=== PATIENT | female | born 1940 | race Caucasian/White ===

== ENCOUNTER → 2016-11-09 | Outpatient (CLI) | payer OTHER, MEDICARE | LOC: BHFA 11:00 | PROVIDERS: ATTEND Internal Medicine Cardiovascular Disease | DX: I48.91 Unspecified atrial fibrillation (principal) ==

== ENCOUNTER → 2016-11-29 | Outpatient (CLI) | payer OTHER, MEDICARE | LOC: BHFA 14:00 | PROVIDERS: ATTEND Internal Medicine Cardiovascular Disease | DX: R94.39 Abnormal result of other cardiovascular function study (principal); I35.1 Nonrheumatic aortic (valve) insufficiency; I48.91 Unspecified atrial fibrillation | CPT/HCPCS: 78452; 93017; A9500 ==

== ENCOUNTER 2017-01-22 12:16 | Emergency (ER) | payer OTHER, MEDICARE ==
[2017-01-22 12:56] VITALS: BP 154/84; PULSE 64; RESP 18; TEMP 97.5; O2SAT 97
--- NOTE | 2017-01-22 13:24 | EDPHY ---
HPI/HX/ROS/PE/MDM Narrative: CHIEF COMPLAINT: Leg pain. HISTORY OF PRESENT ILLNESS: The patient is a 76-year-old female anticoagulated on Coumadin for atrial fibrillation who presents with left lower leg pain. She reports that the pain began a week ago when she hit her leg on the shower and has been worsening since then. She has associated swelling and some reddness over the lower leg. The pain does not radiate. She denies history of blood clot. No fever, chills, chest pain, shortness of breath, palpitations, vomiting , diarrhea, urinary complaints, headache, lightheadedness. REVIEW OF SYSTEMS: Aside from elements discussed in the HPI, a comprehensive 10-point review of systems was reviewed and is negative. PAST MEDICAL HISTORY: Atrial fibrillation, hypertension, hyperlipidemia. SOCIAL HISTORY: Non smoker. VITAL SIGNS: Reviewed by me Alert, oriented, no distress. Lungs CTA, heart regular rate. EXTREMITIES: Range of motion is normal throughout. Left leg: erythema over distal tib/fib, not circumferential, moderate warmth. Mild swelling present up to knee. Negative Koch's. Calf soft and nontender. NEURO: Alert and oriented, grossly nonfocal. SKIN: Warm and dry, no rash. Portions of this note were transcribed by a medical record assistant. I personally performed a history, physical exam, medical decision making, and confirmed accuracy of information the transcribed note. ED Course: I discussed with the patient the possibility of blood clot vs cellulitis. I suspect cellulitis is likely; she will have an ultrasound to rule out DVT. 1515: Negative ultrasound results conveyed to me by Dr. Mcelroy, radiology. She will be discharged on Keflex with the diagnosis of cellulitis. I discussed this with her and answered all of her questions. She understands to follow up closely with her primary care provider this week. Study: Ultrasound of the: Left leg. Indication: Results: Negative. The study was read by the radiologist, Dr. Mcelroy. I viewed the images myself on the PACS system. MDM: Diff dx considered included cellulitis, venous stasis, dvt, superficial thrombophlebitis, chf, lymphedema. General Time Seen by Provider: 01/22/17 13:15 Initial Vital Signs: Initial Vital Signs Temperature (C) 36.4 C 01/22/17 12:53 Heart Rate 64 01/22/17 12:53 Respiratory Rate 18 01/22/17 12:53 Blood Pressure 154/84 H 01/22/17 12:53 O2 Sat (%) 97 01/22/17 12:53 O2 Delivery Mode Room Air Allergies/Adverse Reactions: No Known Allergies Allergy (Verified 01/22/17 12:52) Home Medications: Medication Instructions Recorded Alendronate Sodium 70 mg PO 02/16/14 Aspirin 02/16/14 Richar-Mag Tablet Chewable 02/16/14 Cardura 02/16/14 Hctz/Spironolactone Oral Susp 02/16/14 Multi-Vitamin Daily 1 tab PO DAILY 02/16/14 Prilosec 20 mg PO DAILY 02/16/14 Propranolol Sr 60 mg PO BID 02/16/14 Simvastatin 40 mg PO HS 02/16/14 Cephalexin [Keflex (RX)] 500 mg PO QID 7 Days 01/22/17 Coumadin 01/22/17 Lasix 01/22/17 Departure - Departure Disposition: Home, Routine, Self-Care Clinical Impression: Cellulitis Condition: Good Instructions: Cellulitis (ED) Additional Instructions: Take Keflex as prescribed. Follow up with your primary care provider this week for reevaluation. Return to the emergency department if you experience any serious worsening of condition. Referrals: Lupe Yung MD [Primary Care Provider] - As per Instructions Prescriptions: Cephalexin [Keflex (RX)] 500 mg PO QID 7 Days Report Scribed for: Mayra Ji Report Scribed by: Rogelio Pope Date of Report: 01/22/17 Time of Report: 13:16
== END 2017-01-22 15:37 | disposition home or self-care (01) ==
DX: L03.116 Cellulitis of left lower limb (principal); I10 Essential (primary) hypertension; Z79.82 Long term (current) use of aspirin; Z79.01 Long term (current) use of anticoagulants

== ENCOUNTER 2017-05-17 11:45 | Emergency (ER) | payer OTHER, MEDICARE ==
--- NOTE | 2017-05-17 12:03 | CPEKG ---
Heart Rate: 64 RR Interval: 938 P-R Interval: 164 QRSD Interval: 84 QT Interval: 448 QTC Interval: 463 P [place]: -5 QRS [place]: 15 T Wave [place]: 113 EKG Severity - ABNORMAL ECG - EKG Impression: SINUS RHYTHM EKG Impression: NONSPECIFIC T ABNORMALITIES, LATERAL LEADS Electronically Signed By: Diony Mae 17-May-2017 12:10:13
--- NOTE | 2017-05-17 12:22 | EDPHY ---
H & P Time Seen by Provider: 05/17/17 12:09 HPI/ROS: CHIEF COMPLAINT: Dizziness HISTORY OF PRESENT ILLNESS: Patient is a history of atrial fibrillation which happens usually every 2 months. She has been noticing increasing frequency of her symptoms but when she takes a usual dose of her propranolol symptoms tend to resolve. She woke up this morning at 4:00 a.m. and was awake until 630 and felt okay. 7:15 a.m. she awoke and felt a little bit dizzy. Just over an hour later she was talking to a friend on the phone and felt a "wave of heat" in dizziness and felt like she had to hold on to something. It sounds more like she had presyncope and not really vertigo. She was not staggering, was not off balance, did not actually faint or pass out. She did not have any weakness or numbness in extremities. REVIEW OF SYSTEMS: Eye: no change in vision ENT: no sore throat Cardiac: No chest pain Pulmonary: no cough or SOB Abdomen: no vomiting, diarrhea, abdominal pain. She did not eat very much yesterday and did not have breakfast although she normally does. Musculoskeletal: no back pain or neck pain Skin: no rash Neuro: no headache Constitutional: no fever : no urinary symptoms A comprehensive 10 point review of systems is otherwise negative aside from elements mentioned in the history of present illness. PAST MEDICAL HISTORY: Includes atrial fibrillation, hypertension, . Social history: Here with her . Increased stress yesterday. General Appearance: Alert and conversant, cooperative. Eyes: No scleral icterus. Extraocular motion intact. ENT, Mouth: Normal mucous membranes. Respiratory: Normal respiratory effort, breath sounds equal, lungs are clear to auscultation. Cardiovascular: Regular rate and rhythm. Gastrointestinal: Abdomen is soft and non tender. Neurological: Alert and oriented x3. Normally conversant. Face symmetric, normal movement and sensation in all extremities. Romberg negative, no pronator drift, normal [id number] bilaterally, normal [id number]. Skin: Warm and dry, no rashes. Musculoskeletal: No peripheral edema and no joint swelling. Psychiatric: Not agitated. Emergency Department course/MDM: EKG performed at 11:24 a.m. personally reviewed shows sinus rhythm with probably a short run of atrial fibrillation. I think it is unlikely the patient is having a stroke. I think malignant dysrhythmia is unlikely. Think the most likely symptom explanation is still intermittent atrial fibrillation. 1340: Results discussed, patient asymptomatic in the emergency department. Discussed with the patient that although I do not have a definitive diagnosis I think that an emergent medical condition is unlikely the cause of her symptoms. She has an appointment with her guest experience representative tomorrow. Smoking Status: Never smoked Constitutional: Initial Vital Signs Temperature (C) 36.4 C 05/17/17 11:50 Heart Rate 62 05/17/17 11:50 Respiratory Rate 18 05/17/17 11:50 Blood Pressure 130/76 H 05/17/17 11:50 O2 Sat (%) 97 05/17/17 11:50 O2 Delivery Mode Room Air Allergies/Adverse Reactions: No Known Allergies Allergy (Verified 01/22/17 12:52) Home Medications: Medication Instructions Recorded Alendronate Sodium 70 mg PO 02/16/14 Aspirin 02/16/14 Richar-Mag Tablet Chewable 02/16/14 Hctz/Spironolactone Oral Susp 02/16/14 Multi-Vitamin Daily 1 tab PO DAILY 02/16/14 Prilosec 20 mg PO DAILY 02/16/14 Propranolol Sr 60 mg PO BID 02/16/14 Simvastatin 40 mg PO HS 02/16/14 Coumadin 01/22/17 Lasix 01/22/17 Medical Decision Making - Diagnostics EKG Interpretation: 12-lead EKG interpreted by me; official reading is in trace master. My interpretation is sinus rhythm rate 64 with nonspecific lateral T abnormalities. Differential Diagnosis: Differential diagnosis considered for dizziness including but not limited to peripheral and central causes of vertigo, malignant dysrhythmia, ischemic stroke or hemorrhagic intracranial bleed, orthostatic causes including dehydration, and blood loss. Consult/Admit Bed Type: [facility] at 1348 - Data Points Laboratory Results: Laboratory Results 05/17/17 12:08 05/17/17 12:08 05/17/17 05/17/17 05/17/17 12:08 12:08 12:08 WBC 6.19 10^3/uL 10^3/uL (3.80-9.50) RBC 4.78 10^6/uL 10^6/uL (4.18-5.33) Hgb 14.8 g/dL g/dL (12.6-16.3) Hct 43.5 % % (38.0-47.0) MCV 91.0 fL fL (81.5-99.8) MCH 31.0 pg pg (27.9-34.1) MCHC 34.0 g/dL g/dL (32.4-36.7) RDW 12.5 % % (11.5-15.2) Plt Count 190 10^3/uL 10^3/uL (150-400) MPV 12.2 fL H fL (8.7-11.7) Neut % (Auto) 59.7 % % (39.3-74.2) Lymph % (Auto) 28.3 % % (15.0-45.0) [place] % (Auto) 7.3 % % (4.5-13.0) Eos % (Auto) 3.4 % % (0.6-7.6) Baso % (Auto) 0.8 % % (0.3-1.7) Nucleat RBC Rel Count 0.0 % % (0.0-0.2) Absolute Neuts (auto) 3.70 10^3/uL 10^3/uL (1.70-6.50) Absolute Lymphs (auto) 1.75 10^3/uL 10^3/uL (1.00-3.00) Absolute Monos (auto) 0.45 10^3/uL 10^3/uL (0.30-0.80) Absolute Eos (auto) 0.21 10^3/uL 10^3/uL (0.03-0.40) Absolute Basos (auto) 0.05 10^3/uL 10^3/uL (0.02-0.10) Absolute Nucleated RBC 0.00 10^3/uL 10^3/uL (0-0.01) Immature Gran % 0.5 % % (0.0-1.1) Immature Gran # 0.03 10^3/uL 10^3/uL (0.00-0.10) PT 25.4 SEC H SEC (12.0-15.0) INR 2.29 H (0.83-1.16) APTT 40.9 SEC H SEC (23.0-38.0) Sodium 144 mEq/L mEq/L (134-144) Potassium 3.9 mEq/L mEq/L (3.5-5.2) Chloride 106 mEq/L mEq/L (97-110) Carbon Dioxide 27 mEq/l mEq/l (22-31) Anion Gap 11 mEq/L mEq/L (8-16) BUN 17 mg/dL mg/dL (7-23) Creatinine 0.9 mg/dL mg/dL (0.6-1.0) Estimated GFR > 60 Glucose 114 mg/dL H mg/dL (70-100) Calcium 10.1 mg/dL mg/dL (8.5-10.4) Troponin I < 0.012 ng/mL ng/mL (0-0.034) Departure - Departure Disposition: Home, Routine, Self-Care Clinical Impression: Dizziness Condition: Good Instructions: Near Syncope (ED), Lightheadedness (ED) Referrals: Lupe Yung MD [Primary Care Provider] - As per Instructions Sabine Kennedy MD [Medical Doctor] - 1 day without fail (as scheduled )
[2017-05-17 12:55] LABS: % IMMATURE GRANULYOCYTES 0.5 % (0.0-1.1); ABSOLUTE IMMATURE GRANULOCYTES 0.03 10^3/uL (0.00-0.10); ADD DIFF? NO; ADD MORPH? NO; ADD SCAN? NO; ATYPICAL LYMPHOCYTE FLAG 0 (0-99); FRAGMENT RBC FLAG 0 (0-99); HEMATOCRIT 43.5 % (38.0-47.0); HEMOGLOBIN 14.8 g/dL (12.6-16.3); LEFT SHIFT FLG 0 (0-99); LIPEMIA HEMOLYSIS FLAG 90 (0-99); MEAN PLATELET VOLUME 12.2 fL (8.7-11.7); PLATELET CLUMPS FLAG 0 (0-99); PLATELET COUNT 190 10^3/uL (150-400); RED BLOOD CELL COUNT 4.78 10^6/uL (4.18-5.33); RED CELL DISTRIBUTION WIDTH 12.5 % (11.5-15.2)
[2017-05-17 12:58] LABS: ANION GAP 11 mEq/L (8-16); CALCIUM 10.1 mg/dL (8.5-10.4); CARBON DIOXIDE 27 mEq/l (22-31); CHLORIDE 106 mEq/L (97-110); CREATININE 0.9 mg/dL (0.6-1.0); GLOMERULAR FILTRATION RATE > 60; GLUCOSE 114 mg/dL (70-100); POTASSIUM 3.9 mEq/L (3.5-5.2); SODIUM 144 mEq/L (134-144)
[2017-05-17 13:02] LABS: INR 2.29 (0.83-1.16); PROTIME(PATIENT) 25.4 SEC (12.0-15.0)
[2017-05-17 13:03] LABS: APTT 40.9 SEC (23.0-38.0)
[2017-05-17 13:14] LABS: TROPONIN I < 0.012 ng/mL (0-0.034)
[2017-05-17 14:12] VITALS: BP 103/61; PULSE 65; RESP 16; TEMP 97.9; O2SAT 95
== END 2017-05-17 14:12 | disposition home or self-care (01) ==
DX: R42 Dizziness and giddiness (principal); I10 Essential (primary) hypertension; Z79.01 Long term (current) use of anticoagulants; Z79.82 Long term (current) use of aspirin

== ENCOUNTER → 2017-05-19 | Outpatient (CLI) | payer OTHER, MEDICARE | LOC: BHFA 10:45 | PROVIDERS: ATTEND Internal Medicine | DX: I48.91 Unspecified atrial fibrillation (principal); I35.2 Nonrheumatic aortic (valve) stenosis with insufficiency ==

== ENCOUNTER → 2017-05-23 | Outpatient (CLI) | payer OTHER, MEDICARE | LOC: BHFA 16:00 | PROVIDERS: ATTEND Internal Medicine Cardiovascular Disease | DX: I48.91 Unspecified atrial fibrillation (principal) ==

== ENCOUNTER → 2017-05-26 | Outpatient (CLI) | payer OTHER, MEDICARE | LOC: FIMAGING 15:41 | PROVIDERS: ATTEND Internal Medicine | DX: Z12.31 Encounter for screening mammogram for malignant neoplasm of breast (principal) | CPT/HCPCS: G0202 ==

== ENCOUNTER → 2017-12-11 | Outpatient (CLI) | payer OTHER, MEDICARE | LOC: FIMAGING 15:15 | PROVIDERS: ATTEND Emergency Medicine | DX: M79.662 Pain in left lower leg (principal); M79.89 Other specified soft tissue disorders ==

== ENCOUNTER → 2018-06-22 | Outpatient (CLI) | payer OTHER, MEDICARE | LOC: FIMAGING 12:38 | PROVIDERS: ATTEND Internal Medicine | DX: Z12.31 Encounter for screening mammogram for malignant neoplasm of breast (principal) ==

== ENCOUNTER 2018-07-18 00:36 | Emergency (ER) | payer OTHER, MEDICARE ==
[2018-07-18 00:56] LABS: PLATELET COUNT 209 10^3/uL (150-400)
[2018-07-18] MEDS ORDERED: NS 1,000 ML IV ONE (00:58)
[2018-07-18] MEDS ORDERED: PROPRANOLOL HCL 20 MG TAB PO ONE (01:03)
[2018-07-18 01:04] LABS: INR 1.84 (0.83-1.16); PROTIME(PATIENT) 21.3 SEC (12.0-15.0)
--- NOTE | 2018-07-18 02:11 | EDPHY ---
H & P Stated Complaint: a-fib Time Seen by Provider: 07/18/18 00:39 HPI/ROS: HPI The patient presents with palpitations and feeling of warmth, brought in by ambulance. The patient has a history of intermittent atrial fibrillation and is managed on Coumadin and propanolol. This morning she forgot to take her medications including propanolol 60 mg which she usually takes twice daily. She was at a concert with her at about 8:30 p.m. When she noticed palpitations. These were intermittent though continued for about 2 hr. When she returned home she took her propanolol at about 10:00 p.m.. However her symptoms persisted so she called 911. She thinks she may have been dehydrated today because she did not drink as much fluid as she usually does. She does not have any chest pain, vomiting, dizziness, shortness of breath. She is feeling a bit better since being in the emergency department. Paramedics report that she was in atrial fibrillation with RVR in route. REVIEW OF SYSTEMS 10 systems were reviewed and negative with the exception of the elements mentioned in the history of present illness. PMHx: Atrial fibrillation on Coumadin and propanolol, managed by cardiology, hypertension, hyperlipidemia Soc Hx: Lives at home with her PHYSICAL General Appearance: Alert, no distress Eyes: Pupils equal and round no pallor or injection ENT, Mouth: Mucous membranes moist Respiratory: There are no retractions, lungs are clear to auscultation Cardiovascular: Irregularly irregular Gastrointestinal: Abdomen is soft and non-tender, no masses, bowel sounds normal Neurological: A&O, moves all extremities Skin: Warm and dry, no rashes Musculoskeletal: Neck is supple non tender Extremities: symmetrical, full range of motion Psychiatric: Patient is oriented X 3, there is no agitation Source: Patient, EMS, Old records Exam Limitations: No limitations - Personal History Current Tetanus/Diphtheria Vaccine: Yes Current Tetanus Diphtheria and Acellular Pertussis (TDAP): Yes - Medical/Surgical History Hx Asthma: No Hx Chronic Respiratory Disease: No Hx Diabetes: No Hx Cardiac Disease: Yes Hx Renal Disease: No Hx Cirrhosis: No Hx Alcoholism: No Hx HIV/AIDS: No Other PMH: ortho/HTN/Hyperlipids/ c-sections/afib - Social History Smoking Status: Never smoked Constitutional: Initial Vital Signs Heart Rate 114 H 07/18/18 00:46 Respiratory Rate 18 07/18/18 00:46 Blood Pressure 124/81 H 07/18/18 00:46 O2 Sat (%) 93 07/18/18 00:46 O2 Delivery Mode Room Air O2 (L/minute) 2 Allergies/Adverse Reactions: No Known Allergies Allergy (Verified 07/18/18 01:12) Home Medications: Medication Instructions Recorded Alendronate Sodium 70 mg PO 02/16/14 Aspirin 02/16/14 Richar-Mag Tablet Chewable 02/16/14 Hctz/Spironolactone Oral Susp 02/16/14 Multi-Vitamin Daily 1 tab PO DAILY 02/16/14 Prilosec 20 mg PO DAILY 02/16/14 Propranolol Sr 60 mg PO BID 02/16/14 Simvastatin 40 mg PO HS 02/16/14 Coumadin 01/22/17 Lasix 01/22/17 Medical Decision Making - Diagnostics EKG Interpretation: EKG: Complete interpretation has been separately recorded in the [facility] archive. Summary impression: Atrial fibrillation with RVR, rate from 90-120 Imaging Results: Chest x-ray single view shows no effusion, no infiltrate, no cardiomegaly, poor quality film though seems unchanged from prior chest x-ray. Imaging: I viewed and interpreted images myself Differential Diagnosis: This is a 77-year-old female with history of atrial fibrillation, hypertension, hyperlipidemia who presents with palpitations, concerned that she is in atrial fibrillation. She does have paroxysmal atrial fibrillation she believes and has been in atrial fibrillation since about 8:30 p.[address] [facility]. I suspect a combination of dehydration and not taking her propanolol has led to her current symptoms. She does not have any chest pain or shortness of breath which is reassuring for ACS or PE as cause of her symptoms. In the emergency department, patient was given 1 L fluid bolus and her evening dose of propanolol 60 mg. This caused her to go into a normal sinus rhythm with rate in the 60s to 70s. She felt well with no ongoing symptoms. Her INR was checked and was just minimally subtherapeutic. I reported this to her. Other labs including a troponin test were normal. Her chest x-ray was unremarkable. She felt well enough to go home and was discharged. I have encouraged her to take her medications as prescribed and to make sure to drink plenty of water tomorrow. She is happy with this plan. - Data Points Laboratory Results: Laboratory Results 07/18/18 00:49 07/18/18 00:49 07/18/18 07/18/18 07/18/18 00:53 00:49 00:49 WBC RBC Hgb Hct MCV MCH MCHC RDW Plt Count MPV Neut % (Auto) Lymph % (Auto) [place] % (Auto) Eos % (Auto) Baso % (Auto) Nucleat RBC Rel Count Absolute Neuts (auto) Absolute Lymphs (auto) Absolute Monos (auto) Absolute Eos (auto) Absolute Basos (auto) Absolute Nucleated RBC Immature Gran % Immature Gran # PT 21.3 SEC H SEC (12.0-15.0) INR 1.84 H (0.83-1.16) APTT 38.5 SEC H SEC (23.0-38.0) Sodium 141 mEq/L mEq/L (135-145) Potassium 3.4 mEq/L mEq/L (3.3-5.0) Chloride 101 mEq/L mEq/L (97-110) Carbon Dioxide 29 mEq/l mEq/l (22-31) Anion Gap 11 mEq/L mEq/L (8-16) BUN 17 mg/dL mg/dL (7-23) Creatinine 0.9 mg/dL mg/dL (0.6-1.0) Estimated GFR > 60 Glucose 113 mg/dL H mg/dL (70-100) Calcium 10.4 mg/dL mg/dL (8.5-10.4) POC Troponin I 0.00 ng/mL ng/mL (0.00-0.08) 07/18/18 00:49 WBC 9.18 10^3/uL 10^3/uL (3.80-9.50) RBC 5.05 10^6/uL 10^6/uL (4.18-5.33) Hgb 15.4 g/dL g/dL (12.6-16.3) Hct 44.6 % % (38.0-47.0) MCV 88.3 fL fL (81.5-99.8) MCH 30.5 pg pg (27.9-34.1) MCHC 34.5 g/dL g/dL (32.4-36.7) RDW 12.7 % % (11.5-15.2) Plt Count 209 10^3/uL 10^3/uL (150-400) MPV 12.4 fL H fL (8.7-11.7) Neut % (Auto) 52.9 % % (39.3-74.2) Lymph % (Auto) 31.3 % % (15.0-45.0) [place] % (Auto) 9.4 % % (4.5-13.0) Eos % (Auto) 5.6 % % (0.6-7.6) Baso % (Auto) 0.5 % % (0.3-1.7) Nucleat RBC Rel Count 0.0 % % (0.0-0.2) Absolute Neuts (auto) 4.86 10^3/uL 10^3/uL (1.70-6.50) Absolute Lymphs (auto) 2.87 10^3/uL 10^3/uL (1.00-3.00) Absolute Monos (auto) 0.86 10^3/uL H 10^3/uL (0.30-0.80) Absolute Eos (auto) 0.51 10^3/uL H 10^3/uL (0.03-0.40) Absolute Basos (auto) 0.05 10^3/uL 10^3/uL (0.02-0.10) Absolute Nucleated RBC 0.00 10^3/uL 10^3/uL (0-0.01) Immature Gran % 0.3 % % (0.0-1.1) Immature Gran # 0.03 10^3/uL 10^3/uL (0.00-0.10) PT INR APTT Sodium Potassium Chloride Carbon Dioxide Anion Gap BUN Creatinine Estimated GFR Glucose Calcium POC Troponin I Medications Given: Discontinued Medications Sodium Chloride (Ns) 1,000 mls @ 0 mls/hr IV EDNOW ONE; Wide Open PRN Reason: Protocol Stop: 07/18/18 00:59 Last Admin: 07/18/18 00:59 Dose: 1,000 mls Propranolol HCl (Inderal) 60 mg PO EDNOW ONE Stop: 07/18/18 01:04 Last Admin: 07/18/18 01:13 Dose: 60 mg Point of Care Test Results: Chemistry 07/18/18 00:53 POC Troponin I 0.00 ng/mL ng/mL (0.00-0.08) Departure - Departure Disposition: Home, Routine, Self-Care Clinical Impression: Atrial fibrillation Qualifiers: Atrial fibrillation type: paroxysmal Qualified Code(s): I48.0 - Paroxysmal atrial fibrillation Condition: Good Instructions: A-fib (Atrial Fibrillation) (ED) Additional Instructions: Please resume your usual medications tomorrow as prescribed. Make sure to drink plenty of fluids tomorrow. Please return to the emergency department if your worse in any way. Referrals: Lupe Yung MD [Primary Care Provider] - As per Instructions Reinier Vega MD [Medical Doctor] - As per Instructions
[2018-07-18 02:21] VITALS: BP 115/80
--- NOTE | 2018-07-18 07:37 | CPEKG ---
Test Reason : OPEN Blood Pressure : / mmHG Vent. Rate : 126 BPM Atrial Rate : 165 BPM P-R Int : 172 ms QRS Dur : 084 ms QT Int : 367 ms P-R-T Axes : -33 -16 138 degrees QTc Int : 532 ms Atrial fibrillation Inferior infarct, old Lateral leads are also involved Prolonged QT interval Confirmed by Jennifer Ortiz ([id number]) on 07/18/2018 7:36:42 AM Referred By: Confirmed By:Jennifer Ortiz
== END 2018-07-18 02:43 | disposition home or self-care (01) ==
LOC: EDUNIT#
DX: I48.0 Paroxysmal atrial fibrillation (principal); E86.9 Volume depletion, unspecified; I10 Essential (primary) hypertension; E78.5 Hyperlipidemia, unspecified; Z79.01 Long term (current) use of anticoagulants
CPT/HCPCS: 84484-PO

== ENCOUNTER → 2019-01-18 | Outpatient (CLI) | payer OTHER, MEDICARE | LOC: FIMAGING 08:31 | PROVIDERS: ATTEND Internal Medicine | DX: Z13.820 Encounter for screening for osteoporosis (principal); M81.0 Age-related osteoporosis without current pathological fracture; Z78.0 Asymptomatic menopausal state ==